=== PATIENT | female | born 1970 | race African-American/Black ===

== ENCOUNTER 2017-12-25 23:26 | Emergency (ER) | payer SELFPAY ==
[~2017-12-25] VITALS: Ht 154.9 cm; Wt 80.0 kg
[~2017-12-25 23:26] MED LIST: NAPR1TAB98 PO
[2017-12-25 23:38] VITALS: BP 143/78; PULSE 85; RESP 18; TEMP 98.3; O2SAT 100
[2017-12-26] MEDS ORDERED: DIAZEPAM 5 MG TAB PO ONE (00:15)
[2017-12-26] MEDS ORDERED: ONDANSETRON ODT 4 MG TAB PO ONE (00:15)
[2017-12-26] MEDS ORDERED: KETOROLAC TROMETHAMINE 60 MG/2 ML (IM) VIAL IM ONE (00:15)
--- NOTE | 2017-12-26 00:20 | PD ---
HPI Chief Complaint: Right rib pain Time Seen by Provider: 00:06 Travel History International Travel<30 days: No Contact w/Intl Traveler<30days: No Traveled to known affect area: No History of Present Illness HPI 47yo F with PMH of rheumatoid arthritis and GERD here with c/o right sided rib pain for months. Said it is intermittent and worst with movement. Said she went to [facility] and they could not figure out what was wrong so decided to come here. Denies any fever, chest pain, sob, vomiting, abdominal pain, urinary complaint, focal weakness or numbness. Pt denies any trauma. PFSH Past Medical History Arthritis: Yes (RA) Diminished Hearing: No Tetanus Vaccination: < 5 Years Influenza Vaccination: No ?: Not LMP: 11/16/2017 Tubal Ligation: Yes Social History Alcohol Use: No Tobacco Use: No Substance Use: No Allergies-Medications (Allergen,Severity, Reaction): Coded Allergies: No Known Allergies (Unverified Adverse Reaction, Unknown, 12/25/17) Reported Meds & Prescriptions Reported Meds & Active Scripts Active No Active Prescriptions or Reported Medications Review of Systems Except as stated in HPI: all other systems reviewed are Neg Physical Exam Narrative GENERAL: 47yo F not in distress. SKIN: Focused skin assessment warm/dry. HEAD: Atraumatic. Normocephalic. EYES: Pupils equal and round. No scleral icterus. No injection or drainage. ENT: No nasal bleeding or discharge. Mucous membranes pink and moist. NECK: Trachea midline. No JVD. CARDIOVASCULAR: Regular rate and rhythm. No murmur appreciated. RESPIRATORY: No accessory muscle use. Clear to auscultation. Breath sounds equal bilaterally. GASTROINTESTINAL: Abdomen soft, non-tender, nondistended. No rebound tenderness or guarding. MUSCULOSKELETAL: +TTP right lower ribs. No ecchymoses. No crepitus. NEUROLOGICAL: Awake and alert. No obvious cranial nerve deficits. Motor grossly within normal limits. Normal speech. PSYCHIATRIC: Appropriate mood and affect; insight and judgment normal. Data Data Last Documented VS Vital Signs Date Time Temp Pulse Resp B/P (MAP) Pulse Ox O2 Delivery O2 Flow Rate FiO2 12/25/17 23:38 98.3 85 18 143/78 (99) 100 Orders Orders Ribs, Uni (W/Exp Cxr-Min 3vw) (12/26/17 ) Ketorolac Inj (Toradol Inj) (12/26/17 00:15) Diazepam (Valium) (12/26/17 00:15) Ondansetron Odt (Zofran Odt) (12/26/17 00:15) MDM Medical Decision Making Medical Screen Exam Complete: Yes Emergency Medical Condition: Yes Differential Diagnosis Costochondritis vs. musculoskeletal pain vs. old rib fracture Narrative Course 47yo well appearing female here with right sided rib pain for months. Denies any trauma. Xray right ribs and CXR showed negative rib series. No pneumothorax. Pt given toradol, valium and zofran. Pt reevaluated at bedside and feels better. Return precautions given. Diagnosis Primary Impression: Musculoskeletal pain Patient Instructions: General Instructions Departure Forms: Tests/Procedures Additional Instructions: Please follow up with your primary care physician in 2-3 days. Return to the ED if symptoms worsen. Med/Other Pt SpecificInfo: Prescription(s) given Scripts Ibuprofen (Ibuprofen) 600 Mg Tab 600 MG PO Q8H Y for PAIN, #20 TAB 0 Refills Prov: Luiza Martinez DO 12/26/17 Disposition: 01 DISCHARGE HOME Condition: Stable Luiza Martinez DO Dec 26, 2017 00:20
--- NOTE | 2017-12-26 01:09 | RADRPT ---
EXAM DATE: 12/26/2017 12:51 AM EDT AGE/SEX: 47 years / Female INDICATIONS: Right sided rib pain. CLINICAL DATA: This is the patient's initial encounter. Patient reports that signs and symptoms have been present for 4 - 6 months and indicates a pain score of 4/10. MEDICAL/SURGICAL HISTORY: Hypercholesterolemia. Arthritis. Gastroesophageal reflux disease. T ubal ligation. COMPARISON: No prior exams available for comparison. FINDINGS: There is no evidence of displaced fracture. No destructive lesions or areas of periosteal thickening are seen. Expiratory view of the chest is negative for pneumothorax. The mediastinal structures ar e midline. CONCLUSION: Negative rib series. No evidence of pneumonthorax. Electronically signed by: Kaiden Palmer MD 12/26/2017 1:08 AM EDT
[2017-12-26] MEDS ORDERED: IBUP-232 PO (02:40)
== END 2017-12-26 03:05 | disposition home or self-care (01) ==
LOC: NEPC 23:26
DX: M79.1 Myalgia (principal); M06.9 Rheumatoid arthritis, unspecified; K21.9 Gastro-esophageal reflux disease without esophagitis
CPT/HCPCS: 71101; 96372; 99283; J1885